=== PATIENT | male | born 1955 | race Hispanic/Latino ===

== ENCOUNTER 2019-06-17 14:33 | Emergency (ER) | payer MEDICARE ==
[2019-06-17 16:02] LABS: BASOPHILS % (AUTO) 0.2 % (0.0-5.0); EOSINOPHILS % (AUTO) 5.8 % (0.0-8.0); HEMATOCRIT 27.8 % (42-54); LYMPHOCYTES % (AUTO) 21.7 % (21.0-51.0); MEAN CORPUSCULAR HGB CONC 35.3 g/dL (32.0-36.0); MONOCYTES % (AUTO) 9.2 % (3.0-13.0); NEUTROPHILS % (AUTO) 62.9 % (40.0-77.0); PLATELET COUNT (AUTO) 172 K/uL (130-400); RED BLOOD CELL COUNT(AUTO) 3.27 MIL/uL (4.50-6.20); RED CELL DISTRIBUTION WIDTH 14.9 % (11.0-15.5); WHITE BLOOD COUNT (AUTO) 4.8 K/uL (4.8-10.8)
[2019-06-17 16:09] LABS: INR 0.93 (0.85-1.15); PARTIAL THROMBOPLASTIN TIME 25.7 SEC (26.3-35.5); PROTHROMBIN TIME 10.1 SEC (9.6-11.6)
[2019-06-17] MEDS ORDERED: SODIUM CHLORIDE 0.9% 1000ML 1,000 ML IV ONE (16:24)
[2019-06-17 16:31] LABS: ALBUMIN 3.4 g/dL (3.5-5.0); BILIRUBIN,TOTAL 0.4 mg/dL (0.2-1.0); POTASSIUM 3.7 mmol/L (3.5-5.1); TOTAL PROTEIN, SERUM 6.3 g/dL (6.0-8.3)
[2019-06-17 16:47] LABS: AMPHET/METH SCREEN,URINE NEGATIVE (NEGATIVE); BARBITURATE SCREEN, URINE NEGATIVE (NEGATIVE); BENZODIAZEPINES SCREEN,URINE NEGATIVE (NEGATIVE); CANNABINOID SCREEN,URINE NEGATIVE (NEGATIVE); COCAINE SCREEN,URINE NEGATIVE (NEGATIVE); OPIATE SCREEN,URINE POSITIVE (NEGATIVE); PHENCYCLIDINE SCREEN,URINE NEGATIVE (NEGATIVE)
[2019-06-21] MEDS ORDERED: PANT40TA25 PO (16:37)
[2019-06-21] MEDS ORDERED: MINO2.5T3 PO (16:37)
[2019-06-21] MEDS ORDERED: LEVO125 PO (16:37)
[2019-06-21] MEDS ORDERED: LOSA50TA64 PO (16:37)
[2019-06-21] MEDS ORDERED: PRAM0.129 PO (16:37)
[2019-06-21] MEDS ORDERED: BUME1TAB6 PO (16:37)
[2019-06-21] MEDS ORDERED: ZOLP10TA2 PO (16:37)
[2019-06-21] MEDS ORDERED: INSU100V37 SQ (16:37)
[2019-06-21] MEDS ORDERED: METO10TA3 PO (16:37)
[2019-06-21] MEDS ORDERED: FA/V1TAB5 PO (16:37)
[2019-06-21] MEDS ORDERED: TRAM50TA4 PO (16:37)
== END 2019-06-17 18:35 | disposition home or self-care (01) ==
LOC: EDH 14:33
DX: E86.0 Dehydration (principal); R41.82 Altered mental status, unspecified; E11.9 Type 2 diabetes mellitus without complications; I10 Essential (primary) hypertension; Z87.891 Personal history of nicotine dependence; K21.9 Gastro-esophageal reflux disease without esophagitis; Z88.8 Allergy status to other drugs, medicaments and biological substances
CPT/HCPCS: 36415; 70450; 71045; 80053; 80305; 82550; 84484; 85025; 85610; 85730; 87804 ×2; 93005; 96360; 96361; 99285; J7030

== ENCOUNTER 2019-06-22 07:24 | Day surgery (SDC) | payer MEDICARE ==
[2019-06-22] VITALS (9 sets, daily range): BP systolic 142–155; BP diastolic 58–73
[~2019-06-22] VITALS: Ht 167.6 cm; Wt 66.7 kg
[~2019-06-22 07:24] MED LIST: BUME1TAB6 PO; FA/V1TAB5 PO; INSU100V37 SQ; LEVO125 PO; LOSA50TA64 PO; METO10TA3 PO; MINO2.5T3 PO; PANT40TA54 PO; PRAM0.129 PO; SODIUM CHLORIDE 0.9% 500ML 500 ML IV SCH; TRAM50TA4 PO; ZOLP10TA2 PO
[2019-06-22] MEDS ORDERED: SODIUM CHLORIDE 0.9% 1000ML 1,000 ML IV ONE (07:52)
--- NOTE | 2019-06-22 08:00 | NUR ---
pre op pt arrived ambulatory in no distress. pt made comfortable in bed. call light with in reach, bed in lowest position and pt oriented to room. laboratory monitor connected
[2019-06-22 08:01] LABS: BASOPHILS % (AUTO) 0.6 % (0.0-5.0); EOSINOPHILS % (AUTO) 10.6 % (0.0-8.0); HEMATOCRIT 32.5 % (42-54); LYMPHOCYTES % (AUTO) 18.1 % (21.0-51.0); MEAN CORPUSCULAR HEMOGLOBIN 30.4 pg (27.0-33.0); MEAN CORPUSCULAR HGB CONC 34.5 g/dL (32.0-36.0); MEAN CORPUSCULAR VOLUME 88.1 fL (79-99); MONOCYTES % (AUTO) 11.5 % (3.0-13.0); NEUTROPHILS % (AUTO) 57.8 % (40.0-77.0); NUCLEATED RED BLOOD CELLS 0.3 % (0.0-0.19); PLATELET COUNT (AUTO) 218 K/uL (130-400); RED BLOOD CELL COUNT(AUTO) 3.69 MIL/uL (4.50-6.20); RED CELL DISTRIBUTION WIDTH 15.9 % (11.0-15.5); WHITE BLOOD COUNT (AUTO) 6.5 K/uL (4.8-10.8)
[2019-06-22 08:14] LABS: INR 0.87 (0.85-1.15); PARTIAL THROMBOPLASTIN TIME 25.9 SEC (26.3-35.5); POTASSIUM 4.5 mmol/L (3.5-5.1); PROTHROMBIN TIME 9.4 SEC (9.6-11.6)
[2019-06-22 08:17] LABS: APPEARANCE,URINE Cloudy (CLEAR); BILIRUBIN,URINE Negative (NEGATIVE); COLOR,URINE Yellow (YELLOW); GLUCOSE, URINE (UA) TRACE mg/dL (NEGATIVE); KETONES,URINE Negative (NEGATIVE); LEUKOCYTE ESTERASE ,URINE Small (NEGATIVE); NITRATE,URINE Negative (NEGATIVE); OCCULT BLOOD,URINE Moderate (NEGATIVE); PH,URINE 5.5 (5.0-8.0); PROTEIN,URINE >=1000 mg/dL (NEGATIVE); UROBILINOGEN,URINE 0.2 mg/dL (0.2-1.0)
[2019-06-22] MEDS ORDERED: NITROGLYCERIN 2 MG/VIAL VIAL IV ONE (08:30)
[2019-06-22] MEDS ORDERED: SODIUM BICARB 50MEQ 50ML VIAL ONE (08:30)
[2019-06-22] MEDS ORDERED: BIVALIRUDIN 250 MG/VIAL IV ONE (08:30)
[2019-06-22] MEDS ORDERED: LIDOCAINE HCL 2% 20ML ONE (08:30)
[2019-06-22] MEDS ORDERED: HEPARIN SODIUM 1000UNIT/ML 10ML VIAL ONE (08:30)
[2019-06-22] MEDS ORDERED: IOHEXOL 350 MG/ML 100ML INFUS..BTL IV ONE (08:31)
[2019-06-22 08:35] LABS: AMORPHOUS SEDIMENT,UR Few /LPF (None Seen); BACTERIA,URINE Few /HPF (None Seen); RBC,URINE 0-1 /HPF (0-1); SQUAMOUS EPITHELIAL CELL,UR Rare /HPF (0-2)
--- NOTE | 2019-06-22 08:48 | NUR ---
pre op technical account representative here performing chest x ray.
--- NOTE | 2019-06-22 08:55 | NUR ---
transfer pt taken to [employer] via bed by sher drummond. pt in no distress
--- NOTE | 2019-06-22 09:55 | NUR ---
REPORT RECEIVED REPORT FROM KATARINA ZEPEDA FROM [facility]. [facility] FINDINGS NORMAL AND NO SEDATION GIVEN. WILL WAIT FOR PT TO BE TRANSFERRED BACK TO ROOM
--- NOTE | 2019-06-22 10:19 | NUR ---
md dr ceja attempted to get a hold of significant other but no answer.
--- NOTE | 2019-06-22 12:06 | NUR ---
REPORT REPORT GIVEN TO FANNY MANNING RN. PT IN NO DISTRESS
--- NOTE | 2019-06-22 13:10 | NUR ---
dc pt dc home via , no distress noted. pt denied any pain or discomforts. right groin dressing dry and intact, no bleeding no hematoma. pt dc home with spouse
== END 2019-06-22 13:10 | disposition home or self-care (01) ==
LOC: DAH 07:24
PROVIDERS: ATTEND Internal Medicine Cardiovascular Disease
DX: R07.9 Chest pain, unspecified (principal); I25.10 Atherosclerotic heart disease of native coronary artery without angina pectoris; I77.819 Aortic ectasia, unspecified site; E11.9 Type 2 diabetes mellitus without complications; I10 Essential (primary) hypertension; Z99.2 Dependence on renal dialysis; Z79.899 Other long term (current) drug therapy; Z79.4 Long term (current) use of insulin; Z88.8 Allergy status to other drugs, medicaments and biological substances; Z82.49 Family history of ischemic heart disease and other diseases of the circulatory system; Z83.3 Family history of diabetes mellitus
CPT/HCPCS: 36415; 71045; 80048; 81001; 82948 ×3; 85025; 85610; 85730; 93005 ×2; 93458; 93567; A4215; A4216; A4221; A4222; A4223 ×3; A4606; A4663; C1760; C1894 ×2; J1644; J3490 ×3; J7030; Q9965 ×2; Q9967; J0583

== ENCOUNTER → 2019-07-23 | Outpatient (CLI) | payer MEDICARE ==
[~2019-07-23] MED LIST changes: +PANT40TA25 PO; -PANT40TA54 PO; -SODIUM CHLORIDE 0.9% 500ML 500 ML IV SCH
== END | disposition home or self-care (01) ==
LOC: SHCH 11:11
PROVIDERS: ATTEND Internal Medicine Cardiovascular Disease
DX: I73.9 Peripheral vascular disease, unspecified (principal)
CPT/HCPCS: 93922

== ENCOUNTER 2022-06-28 13:44 | Inpatient (IN) | payer MEDICARE ==
[2022-06-28] VITALS (17 sets, daily range): BP systolic 147–218; BP diastolic 75–106
[~2022-06-28] VITALS: Ht 157.5 cm; Wt 62.2 kg
[~2022-06-28 13:44] MED LIST changes: -PANT40TA25 PO; +PANT40TA54 PO
[2022-06-28 14:47] LABS: BASOPHILS % (AUTO) 0.4 % (0.0-5.0); EOSINOPHILS % (AUTO) 3.9 % (0.0-8.0); HEMATOCRIT 29.1 % (42-54); LYMPHOCYTES % (AUTO) 10.7 % (21.0-51.0); MEAN CORPUSCULAR HEMOGLOBIN 29.1 pg (27.0-33.0); MEAN CORPUSCULAR HGB CONC 32.3 g/dL (32.0-36.0); MEAN CORPUSCULAR VOLUME 90.1 fL (79-99); MONOCYTES % (AUTO) 6.2 % (3.0-13.0); NEUTROPHILS % (AUTO) 78.4 % (40.0-77.0); PLATELET COUNT (AUTO) 268 K/uL (130-400); RED BLOOD CELL COUNT(AUTO) 3.23 MIL/uL (4.50-6.20); RED CELL DISTRIBUTION WIDTH 15.3 % (11.0-15.5); WHITE BLOOD COUNT (AUTO) 7.2 K/uL (4.8-10.8)
[2022-06-28] MEDS ORDERED: NIFEDIPINE ER 30 MG TAB PO SCH (15:00)
[2022-06-28] MEDS ORDERED: HYDRALAZINE 25MG TABLET PO SCH ×2 (15:00→21:00)
[2022-06-28 15:01] LABS: HEMOGLOBIN A1C 5.7 % (4.0-6.0); INR 0.93 (0.85-1.15); PROTHROMBIN TIME 10.1 SEC (9.6-11.6)
[2022-06-28 15:02] LABS: PARTIAL THROMBOPLASTIN TIME 27.9 SEC (26.3-35.5)
[2022-06-28 15:11] LABS: B-TYPE NATRIURETIC PEPTIDE 2470 pg/mL (0-100)
[2022-06-28 15:14] LABS: ALBUMIN 2.7 g/dL (3.5-5.0); POTASSIUM 5.1 mmol/L (3.5-5.1); THYROID STIMULATING HORMONE 3.43 uIU/mL (0.36-3.74); TOTAL PROTEIN, SERUM 6.4 g/dL (6.0-8.3)
[2022-06-28 15:16] LABS: CREATININE 10.6 mg/dL (0.5-1.5)
[2022-06-28] MEDS ORDERED: HYDR50TA36 PO (15:52)
[2022-06-28] MEDS ORDERED: GABAPENTIN (15:52)
[2022-06-28] MEDS ORDERED: SEVE800T27 (15:52)
[2022-06-28] MEDS ORDERED: NIFE60TA81 PO (15:52)
[2022-06-28] MEDS ORDERED: ACET-2079 PO (15:52)
[2022-06-28] MEDS ORDERED: APIX5TAB PO (15:52)
[2022-06-28] MEDS ORDERED: TEMA30CA PO (15:52)
[2022-06-28] MEDS: SEVELAMER HCL 800 MG TABLET PO SCH (17:00)
[2022-06-28] MEDS: HYDRALAZINE 20MG/ML VIAL IV PRN (19:24)
[2022-06-28] MEDS: HYDRALAZINE 25MG TABLET PO SCH (21:28)
[2022-06-28] MEDS: NIFEDIPINE ER 30 MG TAB PO SCH (21:28)
[2022-06-29] VITALS (7 sets, daily range): BP systolic 133–206; BP diastolic 64–94
[2022-06-29] MEDS: HYDRALAZINE 20MG/ML VIAL IV PRN ×2 (01:17→12:27)
[2022-06-29] MEDS ORDERED: MAG/ALUM/SIMETH 30 ML UDCUP PO PRN (03:00)
[2022-06-29 03:02] LABS: HEPATITIS B SURFACE ANTIGEN Non-Reactive (Nonreactive)
[2022-06-29 05:23] LABS: BASOPHILS % (AUTO) 0.5 % (0.0-5.0); HEMATOCRIT 28.9 % (42-54); LYMPHOCYTES % (AUTO) 7.4 % (21.0-51.0); MEAN CORPUSCULAR HEMOGLOBIN 29.1 pg (27.0-33.0); MEAN CORPUSCULAR HGB CONC 32.5 g/dL (32.0-36.0); MEAN CORPUSCULAR VOLUME 89.5 fL (79-99); MONOCYTES % (AUTO) 7.8 % (3.0-13.0); NEUTROPHILS % (AUTO) 75.8 % (40.0-77.0); PLATELET COUNT (AUTO) 255 K/uL (130-400); RED BLOOD CELL COUNT(AUTO) 3.23 MIL/uL (4.50-6.20); RED CELL DISTRIBUTION WIDTH 15.3 % (11.0-15.5); WHITE BLOOD COUNT (AUTO) 6.5 K/uL (4.8-10.8)
[2022-06-29 05:35] LABS: CREATININE 7.1 mg/dL (0.5-1.5); POTASSIUM 4.6 mmol/L (3.5-5.1)
[2022-06-29 05:45] LABS: B-TYPE NATRIURETIC PEPTIDE 2530 pg/mL (0-100)
[2022-06-29] MEDS: LEVOTHYROXINE 125 MCG TABLET PO SCH (06:49)
[2022-06-29] MEDS: VITAMIN D3 PO SCH (09:00)
[2022-06-29] MEDS: VIT BCOMP PO SCH (09:00)
[2022-06-29] MEDS: [UNRECOGNIZED DRUG - OTHER] PO SCH (09:00)
[2022-06-29] MEDS: ZINC PO SCH (09:00)
[2022-06-29] MEDS: NIFEDIPINE ER 30 MG TAB PO SCH ×2 (09:29→21:56)
[2022-06-29] MEDS: APIXABAN 5 MG TABLET PO SCH ×2 (09:29→21:56)
[2022-06-29] MEDS: SEVELAMER HCL 800 MG TABLET PO SCH ×3 (09:29→16:44)
[2022-06-29] MEDS: PANTOPRAZOLE 40 MG TAB DR PO SCH (09:29)
[2022-06-29] MEDS: HYDRALAZINE 25MG TABLET PO SCH ×2 (09:30→21:56)
[2022-06-29] MEDS: TEMAZEPAM 15 MG CAPSULE PO PRN (21:56)
[2022-06-29] MEDS: CARVEDILOL 6.25 MG TABLET PO SCH (21:57)
[2022-06-30 03:06] VITALS: BP 143/64
[2022-06-30 05:25] LABS: HEMATOCRIT 27.8 % (42-54); MEAN CORPUSCULAR HEMOGLOBIN 29.1 pg (27.0-33.0); MEAN CORPUSCULAR VOLUME 90.8 fL (79-99); PLATELET COUNT (AUTO) 255 K/uL (130-400); RED BLOOD CELL COUNT(AUTO) 3.06 MIL/uL (4.50-6.20); RED CELL DISTRIBUTION WIDTH 15.4 % (11.0-15.5); WHITE BLOOD COUNT (AUTO) 5.9 K/uL (4.8-10.8)
[2022-06-30 05:35] LABS: EOSINOPHILS % (MANUAL) 16 % (1-6); LYMPHOCYTES % (MANUAL) 12 % (22-44); MAN.DIFF COMMENT-IMPRESSION MANUAL DIFFERENTIAL; MONOCYTES % (MANUAL) 16 % (2-9); PLATELET MORPHOLOGY COMMENT ADEQUATE; SEGMENTED NEUTROPHILS % 56 % (40-70)
[2022-06-30 05:51] LABS: % IRON SATURATION 25.2 % (30-44)
[2022-06-30 06:06] LABS: ALBUMIN 2.8 g/dL (3.5-5.0); PHOSPHORUS 6.5 mg/dL (2.5-4.9); POTASSIUM 5.3 mmol/L (3.5-5.1); TOTAL PROTEIN, SERUM 6.4 g/dL (6.0-8.3)
[2022-06-30 06:16] LABS: CREATININE 9.3 mg/dL (0.5-1.5)
[2022-06-30] MEDS: LEVOTHYROXINE 125 MCG TABLET PO SCH (06:49)
[2022-06-30 08:00] VITALS: BP 186/77
[2022-06-30] MEDS: [UNRECOGNIZED DRUG - OTHER] PO SCH (09:00)
[2022-06-30] MEDS: ZINC PO SCH (09:00)
[2022-06-30] MEDS: VITAMIN D3 PO SCH (09:00)
[2022-06-30] MEDS: VIT BCOMP PO SCH (09:00)
[2022-06-30] MEDS: PANTOPRAZOLE 40 MG TAB DR PO SCH (09:13)
[2022-06-30] MEDS: NIFEDIPINE ER 30 MG TAB PO SCH ×2 (09:13→20:47)
[2022-06-30] MEDS: APIXABAN 5 MG TABLET PO SCH ×2 (09:13→20:47)
[2022-06-30] MEDS: SEVELAMER HCL 800 MG TABLET PO SCH ×3 (09:13→15:52)
[2022-06-30] MEDS: HYDRALAZINE 25MG TABLET PO SCH ×2 (09:13→20:47)
[2022-06-30] MEDS: CARVEDILOL 6.25 MG TABLET PO SCH ×2 (09:14→20:48)
[2022-06-30 11:56] VITALS: BP 155/78
[2022-06-30] MEDS ORDERED: IRON SUCROSE COMPLEX 300 MG in 0.9% NACL 250ML 250 ML IV SCH (14:00)
[2022-06-30 15:25] VITALS: BP 183/73
[2022-06-30 19:45] VITALS: BP 163/98
[2022-06-30] MEDS: TEMAZEPAM 15 MG CAPSULE PO PRN (22:32)
[2022-06-30 23:00] VITALS: BP 159/76
[2022-07-01] VITALS (19 sets, daily range): BP systolic 155–179; BP diastolic 60–88
[2022-07-01 05:25] LABS: HEMATOCRIT 27.5 % (42-54); MEAN CORPUSCULAR HEMOGLOBIN 29.3 pg (27.0-33.0); MEAN CORPUSCULAR HGB CONC 31.6 g/dL (32.0-36.0); MEAN CORPUSCULAR VOLUME 92.6 fL (79-99); RED BLOOD CELL COUNT(AUTO) 2.97 MIL/uL (4.50-6.20); RED CELL DISTRIBUTION WIDTH 15.2 % (11.0-15.5)
[2022-07-01 05:47] LABS: ALBUMIN 2.6 g/dL (3.5-5.0); POTASSIUM 5.7 mmol/L (3.5-5.1); TOTAL PROTEIN, SERUM 6.2 g/dL (6.0-8.3)
[2022-07-01 05:52] LABS: CREATININE 10.6 mg/dL (0.5-1.5)
[2022-07-01] MEDS: LEVOTHYROXINE 125 MCG TABLET PO SCH (06:38)
[2022-07-01] MEDS: CARVEDILOL 6.25 MG TABLET PO SCH (09:00)
[2022-07-01] MEDS: ZINC PO SCH (09:00)
[2022-07-01] MEDS: VITAMIN D3 PO SCH (09:00)
[2022-07-01] MEDS: [UNRECOGNIZED DRUG - OTHER] PO SCH (09:00)
[2022-07-01] MEDS: VIT BCOMP PO SCH (09:00)
[2022-07-01] MEDS: APIXABAN 5 MG TABLET PO SCH (10:10)
[2022-07-01] MEDS: PANTOPRAZOLE 40 MG TAB DR PO SCH (10:10)
[2022-07-01] MEDS: SEVELAMER HCL 800 MG TABLET PO SCH ×2 (10:11→12:12)
[2022-07-01] MEDS: HYDRALAZINE 25MG TABLET PO SCH (12:11)
[2022-07-01] MEDS: NIFEDIPINE ER 30 MG TAB PO SCH (12:12)
[2022-07-01] MEDS ORDERED: CARV6.2579 PO (13:18)
== END 2022-07-01 15:10 | disposition home or self-care (01) | DRG 291 ==
LOC: EDH 13:44 → DIRECT 13:45 → 4CH 14:05
PROVIDERS: ADMIT Internal Medicine; ATTEND Internal Medicine
PROC: 5A1D70Z Performance of Urinary Filtration, Intermittent, Less than 6 Hours Per Day (ICD-10-PCS; 2022-06-28)
PROC: 5A1D70Z Performance of Urinary Filtration, Intermittent, Less than 6 Hours Per Day (ICD-10-PCS; principal; 2022-07-01)
DX: I13.2 Hypertensive heart and chronic kidney disease with heart failure and with stage 5 chronic kidney disease, or end stage renal disease (principal); I50.33 Acute on chronic diastolic (congestive) heart failure; N18.6 End stage renal disease; J96.11 Chronic respiratory failure with hypoxia; E11.22 Type 2 diabetes mellitus with diabetic chronic kidney disease; I16.0 Hypertensive urgency; I42.9 Cardiomyopathy, unspecified; I48.91 Unspecified atrial fibrillation; B19.20 Unspecified viral hepatitis C without hepatic coma; D50.9 Iron deficiency anemia, unspecified; E03.9 Hypothyroidism, unspecified; E78.5 Hyperlipidemia, unspecified; I25.10 Atherosclerotic heart disease of native coronary artery without angina pectoris; Z79.01 Long term (current) use of anticoagulants; Z99.2 Dependence on renal dialysis; Z79.899 Other long term (current) drug therapy; Z88.2 Allergy status to sulfonamides; Z88.0 Allergy status to penicillin
CPT/HCPCS: 36415; 71045; 80048; 80053; 82728; 83036; 83540; 83550; 83880; 84100; 84443; 84484; 85025; 85027; 85610; 85730; 86704; 86706; 87340; 90935; 93306; 93356; G0378; J0360; J1756; J7050